=== PATIENT | female | born 1990 | race Caucasian/White ===

== ENCOUNTER 2020-10-30 16:15 | Emergency (ER) | payer OTHER, SELFPAY ==
[2020-10-30 16:23] VITALS: BP 141/93; PULSE 61; RESP 18; TEMP 36.8; O2SAT 100; BMI 23.1
--- NOTE | 2020-10-30 17:25 | ED.ALCOHOL ---
HPI - Alcohol General Chief Complaint: ETOH/Substance Use Stated Complaint: withdraw Time Seen by Provider: 10/30/20 17:39 Source: patient Mode of arrival: ambulatory Limitations: no limitations History of Present Illness HPI narrative: 30-year-old female seeking detox from heroin. States to have withdrawal symptoms time. Amount of alcohol consumed: Last heroin use 7:00 a.m. Associated symptoms: denies other symptoms Related Data Allergies Allergy/AdvReac Type Severity Reaction Status Date / Time No Known Allergies Allergy Unverified 02/19/20 19:48 [No Known Allergies*] Review of Systems Review of Systems: Constitutional: No Fever, No Chills ENT/Mouth: No sore throat, No Rhinorrhea Eyes: No Eye Pain, No Swelling, No Redness Cardiovascular: No Chest Pain, No SOB Respiratory: No Cough, No Sputum Gastrointestinal: No Nausea, No Vomiting, No Diarrhea, No abdominal Pain Genitourinary: No Dysuria, No Hematuria Musculoskeletal: No joint pain, No Myalgias, No Joint Swelling Skin: No Skin Lesions, No rash Neuro: No Weakness, No Numbness, No Loss of Consciousness, No Dizziness, No Headache Psych: Positive heroin withdrawal, No Anxiety, No Depression, No SI/HI/AH/VH Heme/Lymph: No Bruising, No Bleeding,No Lymphadenopathy Endocrine: No Polyuria, No Polydipsia Yes all other systems are reviewed and are negative [facility] Past Medical History Attestation statement: The following information was validated with the patient. Source: old records reviewed Social History Social History Advance Directives: No Advance Directives Information Provided: No Physical Exam Vital Signs: Vital Signs: Last Vital Signs Temp 98.2 F 10/30/20 16:23 Pulse 61 10/30/20 16:23 Resp 18 10/30/20 16:23 BP 141/93 H 10/30/20 16:23 Pulse Ox 100 10/30/20 16:23 Body Mass Index 23.1 Appearance: Alert. Oriented X3. Moderate emotional distress. Eyes: Pupils equal, round and reactive to light. EOMI, sclera nonicteric ENT: Pharynx normal. Moist mucous membranes Neck: Normal inspection. Neck supple. CVS: Normal heart rate and rhythm. Pulses normal. Respiratory: No respiratory distress. Breath sounds normal. Abdomen: Soft and nontender. Skin: Skin warm and dry. Normal skin color. Normal skin turgor. Extremities: No lower extremity edema. Neuro: No motor deficit. No sensory deficit. Course Course Course Narrative: 30-year-old female presents with request for assistance with heroin withdrawal. Would like to be on Suboxone. Discussion with assistant womens volleyball coach Richard, plan is to start with the Suboxone present to the emergency department tomorrow for her 2nd dose. Approximately 45 minutes after 1st 4 mg dosage, 2nd 4 mg dosage ordered. Family is with patient, patient agrees to plan of care. MDM - Alcohol MDM Narrative Medical decision making narrative: Heroin withdrawal Medical Records Attestation: I reviewed the patient's medical records. Discharge Plan Discharge Clinical Impression: Encounter for monitoring Suboxone maintenance therapy Patient Disposition: Home, Self-Care Instructions: Buprenorphine/Naloxone (Into the mouth) Additional Instructions: Please return tomorrow for dosing. Follow-up with assistant womens volleyball coach at planned. Thank you for choosing this emergency department for evaluation. Please follow-up with primary care physician as needed. Return to the emergency department for any new, concerning, or worsening symptoms.
[2020-10-30 17:39] VITALS: PULSE 66
--- NOTE | 2020-10-30 17:42 | MHC.RECOVSUP ---
Recovery Support note: Patient is a 30 year old Ecuadorean speaking female who presented to [facility] ED due to withdrawal symptoms. Patient reports she tried getting into detox earlier today but was unsuccessful. Discussed Suboxone with patient and she is interested in starting while in the emergency department. Patient was accompanied by a friend who explained that patient is depressed, anxious and unable to maintain sobriety. Discussed outpatient treatment options including MAT, IOP and PHP. Plan for patient to get started on Suboxone and return Sunday and Sunday for dosing and to follow up at the clinic on Sunday. Patient provided with IOP information and information on the PHP program at [facility]. This medical writer will offer patient a referral to a Strain Technician. Discussed case with patient's RN and ED provider.
[2020-10-30] MEDS: Buprenorphine/Naloxone 4/1 mg FILM 1 FILM SUBLINGUAL ×2 (17:57→18:58)
== END 2020-10-30 18:50 | disposition home or self-care (01) ==
PROVIDERS: Emergency Provider Internal Medicine
DX: F11.23 Opioid dependence with withdrawal (principal); Z71.51 Drug abuse counseling and surveillance of drug abuser
CPT/HCPCS: 99283

== ENCOUNTER 2020-10-31 11:03 | Emergency (ER) | payer OTHER, SELFPAY ==
[2020-10-31 11:20] VITALS: BP 122/71; PULSE 71; RESP 16; TEMP 36.7; O2SAT 97; BMI 22.4
--- NOTE | 2020-10-31 12:50 | PC.NURSE ---
genesis (care team) at bedside pt/family aware of plan of care.
--- NOTE | 2020-10-31 12:52 | MHC.RECOVSUP ---
Recovery Support note: Patient is a 30 year old Belizean speaking female who presented to [facility] ED today for medication. Patient was started on Suboxone yesterday and returned today for her dose as planned. Patient reports she is doing well and reports no questions regarding the resources discussed yesterday. Discussed case with patient's ED provider. Patient will be sent out with a prescription for tomorrow and will return to go to the clinic on Sunday.
[2020-10-31] MEDS: Buprenorphine/Naloxone 8/2 mg FILM 1 FILM SUBLINGUAL (13:06)
--- NOTE | 2020-10-31 13:28 | ED.GENADULT ---
HPI - General Adult General Chief complaint: General Medical Stated complaint: MEDICATION Time Seen by Provider: 10/31/20 12:31 Source: patient Mode of arrival: ambulatory History of Present Illness HPI narrative: 30-year-old female with a past medical history of heroin abuse presenting to the ED for 2nd Suboxone dose. Patient was seen and treated in the ED yesterday after seeking detox from heroin and received 1st dose of Suboxone and was instructed to return for today's dose. Denies withdrawal symptoms at this time. Denies nausea, vomiting, headache, tremors Onset (ago): day(s) Related Data Previous Rx's Medication Instructions Recorded buprenorphine-naloxone [Suboxone] 1 film BUCCAL DAILY 1 Days #1 ea 10/31/20 Allergies Allergy/AdvReac Type Severity Reaction Status Date / Time No Known Allergies Allergy Verified 10/31/20 11:24 [No Known Allergies*] Review of Systems Review of Systems: Constitutional: No Weight loss, No Fever Eyes: No Eye Pain, No Swelling, No Vision Changes Cardiovascular: No Chest Pain, No SOB, No Palpitations Respiratory: No Cough, No Dyspnea Gastrointestinal: No Nausea, No Vomiting, No Abdominal pain Musculoskeletal: No Myalgias Skin: No Skin Lesions, No rash Neuro: No Headache Yes all other systems are reviewed and are negative PMF[facility] Past Medical History Attestation statement: The following information was validated with the patient. Medical History (Updated 10/31/20 @ 13:28 by LEONARDO Hunt) No known health problems Social History Social History Alcohol intake: never Patient Tobacco Use Status: Current someday Tobacco user Substance Use Type: Marijuana Last Used Substance: Hours (ago) Advance Directives: Yes Advance Directives Information Provided: No Advance Directives on File: No Patient : No Physical Exam Vital Signs: Vital Signs: Last Vital Signs Temp 97.7 F 10/31/20 13:38 Pulse 71 10/31/20 13:38 Resp 16 10/31/20 13:38 BP 118/67 10/31/20 13:38 Pulse Ox 99 10/31/20 13:38 Body Mass Index 22.4 Const: General: cooperative, healthy appearing and no acute distress Orientation/consciousness: patient oriented x3 Limitations: no limitations HENMT: Head: Yes normal to inspection and Yes atraumatic Ears: hearing grossly normal bilaterally General nose exam: Normal external nose present Face and sinus: Yes normal facial exam Eyes: General: appearance normal, both eyes and all related structures EOM: EOMs intact bilaterally Neck: Neck: Yes normal visual inspection and Yes no meningeal signs Resp: Effort & Inspection: normal respiratory effort, not labored and no respiratory distress Cardio: Rate: regular rate GI: Inspection: Yes normal to inspection Skin: Rashes: no rashes Wounds: no wounds Neuro: General: patient oriented x3 and no meningeal signs Gait exam (Neuro): Normal gait present Extrem: General: Yes normal to inspection Medical Decision Making MDM Narrative Medical decision making narrative: 30-year-old female with a past medical history of heroin abuse presenting to the ED for 2nd Suboxone dose. On exam vital signs stable, NAD, no apparent distress, no signs of tremors or withdrawal symptoms at this time. Will give patient 2nd dose of Suboxone. Dr. Fuller able to Rx patient 1x dose Suboxone for tomorrow & then patient plans to follow up in Suboxone Clinic on Sunday after iday Discharge Plan Discharge Clinical Impression: Encounter for monitoring Suboxone maintenance therapy Patient Disposition: Home, Self-Care Instructions: Buprenorphine/Naloxone (Into the mouth) Additional Instructions: Your given 8 mg of Suboxone today A prescription for 8 mg of Suboxone was sent to the pharmacy for you tomorrow, take at 1:00 p.m. You need to follow-up in the Suboxone Clinic on Sunday Refrain from any drug or alcohol use Prescriptions: New buprenorphine-naloxone [Suboxone] 8-2 mg film 1 film buccal DAILY 1 Days Qty: 1 RF: 0 Referrals: [facility] [Physician] - 2 days Interventions: ED Discharge Assessment Last Done: 10/31/20 13:46 Discharge Date/Time: 10/31/20 13:47
[2020-10-31 13:38] VITALS: BP 118/67; PULSE 71; RESP 16; TEMP 36.5; O2SAT 99
== END 2020-10-31 13:47 | disposition home or self-care (01) ==
PROVIDERS: Emergency Provider Emergency Medicine Emergency Medical Services
DX: Z51.81 Encounter for therapeutic drug level monitoring (principal); F11.20 Opioid dependence, uncomplicated
CPT/HCPCS: 99284

== ENCOUNTER → 2020-11-02 11:25 | Outpatient (BNVA) | payer OTHER, SELFPAY | PROVIDERS: Visit Provider Internal Medicine | DX: F12.90 Cannabis use, unspecified, uncomplicated (principal); F14.11 Cocaine abuse, in remission; F11.99 Opioid use, unspecified with unspecified opioid-induced disorder; Z72.89 Other problems related to lifestyle | CPT/HCPCS: 99202 ==

== ENCOUNTER → 2020-11-09 09:58 | Outpatient (BNVA) | payer OTHER, SELFPAY | PROVIDERS: Visit Provider Internal Medicine | DX: Z51.81 Encounter for therapeutic drug level monitoring (principal) | CPT/HCPCS: 80305; 99211 ==

== ENCOUNTER → 2020-11-15 10:01 | Outpatient (BNVA) | payer OTHER, SELFPAY | PROVIDERS: PCP Internal Medicine | DX: Z51.81 Encounter for therapeutic drug level monitoring (principal); F11.90 Opioid use, unspecified, uncomplicated | CPT/HCPCS: 80305; 99211 ==

== ENCOUNTER → 2020-11-22 09:30 | Outpatient (BNVA) | payer OTHER, SELFPAY | DX: Z51.81 Encounter for therapeutic drug level monitoring (principal); F11.90 Opioid use, unspecified, uncomplicated | CPT/HCPCS: 80305; 99211 ==

== ENCOUNTER 2020-11-25 08:45 | Outpatient (RCR) | payer OTHER, SELFPAY ==
[2020-11-05 11:31] VITALS: BMI 23.3
--- NOTE | 2020-11-05 11:48 | PC.ADMIT ---
Patient was seen in [facility] ER on 10/30/20 after relapsing on Heroin for a month. Patient reports she was withdrawing and in crisis. Patient was seen by the [facility] who prescribed Suboxone and referred patient to the PHP for more support. Patient reported increased depression with passive SI and increased anxiety. Identifies contributing factor to relapse is breakup with boyfriend of 1.5 years. Hx of trauma. She currently lives with her mother and brother. Patient is alert and oriented x4. Calm and cooperative. Denied SI at present. Asked who could she contact if feeling unsafe and she stated her sister or mother. Patient has the crisis number if needed. Patient gave verbal permission to email her a copy of her safety plan. Medications reconciled with patient and patient's pharmacy. Reports taking medications as prescribed. Recommended patient attend online substance use groups in addition to PHP for more support with early sobriety. Patient agrees not to smoke marijuana while attending the PHP program.
--- NOTE | 2020-11-05 12:57 | P.HPPSP_ITS ---
HPI Chief Complaint: Depression, Anxiety, Substance abuse D/O HPI Medical Evaluation Reviewed: Yes [facility] Medical History Engages in vaping H/O cocaine abuse Marijuana user No known health problems Opioid use disorder Narrative: Patient is a 30 year-old single female, with no children, referred by [facility] for symptoms of depression and anxiety. She has no history of psychiatric treatment. 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 She describes feeling not myself over the past few months, describing increased anxiety, with low energy, anhedonia, increased sleep, and appetite. She describes episodes of 4 to 5 days at a time since adolescence where she w ould sleep less, overspend, going shopping an to casino, and put herself in risky situations. She describes not losing full self-control, but 'doing things I would not normally do . She does acknowledge increased alcohol and substance use during these times as well. She then states that afterwards, she would experience a mood swing in the opposite direction , with periods of feeling down, with a sense of sadness that would become depression. She describes her mother and sister as being supportive during these times, and both are currently in her life. She lives with her mother and brother, with her older sister and nephew living downstairs. She is one of 4 siblings. She reports there is no family of mental illness, and familial history of cancer, on mother's side. Patient reports that she was abstinent from any opioid use for approximately 5 to 6 years, although she would use marijuana and cocaine occasionally. She recently relapsed with opioids, and has begun suboxone therapy several days ago. She states that she realizes that she needs help with both CAROL and mental health, and that what she has been doing on her own is not working anymore . She is willing to consider medications to help manage Narrative: No history reported. Family History: Maternal familial history of cancer. No substance use or mental illness reported. Social History: Graduated high school. 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 Lives with mother and brother, with sister and nephew in apartment downstairs. Substance History: Marijuana occasional use. Alcohol occasional use. 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 Trauma History: Denies any major traumatic events, states the normal life issues, , etc . Diagnostics Vital Signs (24Hr): Body Mass Index 23.3 Labs Labs: Labs to be completed, including SQUIRES and TSH serum. Meds/Allergies Meds Narrative: Patient recently began suboxone therapy, 16mg SL daily. Takes Sronyx at bedtime. Allergies Allergies Allergy/AdvReac Type Severity Reaction Status Date / Time No Known Allergies Allergy Verified 10/31/20 11:24 [No Known Allergies*] Mental Status Exam Mental Status Exam Patient Appearance: Well Grooomed Patient Orientation: Person, Place, Time and Situation Level of Consciousness: Appropriate and Alert Patient Behavior: Appropriate and Cooperative Mood Description: Appropriate and Anxious Affect Description: Appropriate and Anxious Patient Cognition Impaired: No Ability to Follow Directions: Excellent Speech Pattern: Clear Memory Description: Intact Hallucinations: None Delusions: Not Present Thought Process: Intact Thought Content: positive for Intact Depressive Symptoms: Increased Anxiety, Changes in Appetite, Sleeping More Than Usual and Loss of Int. in Activity Judgement: Good Judgement and Insight: Judgement and insight grossly intact. Patient displays help-seeking behaviors, including participation in groups and medication consideration. Assessment & Plan Patient educated on: diagnosis, medication risk/benefits and substance abuse Informed Consent: understands Reason for continued partial hosp. stay Substantial Risk for: inability to function Certification PLAN: Start Latuda 20mg daily. Will follow up with patient in one week. I certify that partial hospital treatment is medically necessary due to the symptoms and problems resulting from the patient's mental illness and the failure to treat the patient at the partial hospital level of care would likely result in the patient requiring inpatient psychiatric care which could not be prevented at a less intensive level of care. Telehealth Telehealth Location of provider rendering services: practice address Location of patient: address on file Patient Identification confirmed using: Name, : Yes Telehealth method: video Patient verbally consented to treatment: Yes Patient verbally consented to billing insurance company: Yes Patient informed of any privacy concerns related to visit: Yes Time spent with patient (mins): 45
--- NOTE | 2020-11-08 14:50 | PC.NURSE ---
Case opened in treatment team
--- NOTE | 2020-11-08 15:21 | PC.NURSE ---
I called [facility] to inquire about patients appointment because a referral had been made. They said that the clinician called her last sunday and there was no answer. They will look into it and let the clinician who is assigned know.
--- NOTE | 2020-11-11 16:51 | HO.PHPPROGNO ---
Subjective Subjective Date of Service: 11/11/20 Reason For Visit: Depression, Anxiety, Substance abuse D/O Medical Problems Affecting Mental Status: No Interim History: Met with Kinga this afternoon. She was unable to pick-up Jake due to difficulties with insurance company and a prior auth. Patient describes still feeling depressed, and wishing to be started on another medication. We reviewed her possible diagnosis of bipolar disorder. She reports her last episode of hypomanic symptoms was approximately 1 1/2 months ago, whereas she went on a spending spree, sleeping only 3 to 4 hours at night but feeling rested, and engaging in other risky behaviors, including gambling at a casino. She says her pattern is to go through a phase like this for 4 to 5 days, and then come down hard , and feel extremely depressed for a period of time, much longer than the feeling of hypomania. We discussed medication options going forward. Based on the information provided above, it was decided that a trial of Wellbutrin may not be best option. We discussed medications Lamictal and Seroquel. Patient has agreed to try a low dose of seroquel to start, and reassess next week. At that time, we could consider increase of seroquel, or change to lamictal, depending on efficacy and side effects of seroquel. She was in agreement with this plan. Education was provided regarding the medications and potential side effects. She dis report that she is finding the program and groups helpful. Medication Compliance: Yes (Not applicable, as patient was unable to get the medication. ) Attending Groups: Yes Review of Systems Review of Systems Yes all other systems are reviewed and are negative Mental Status Exam Mental Status Exam Patient Appearance: Well Grooomed and Appropriate Patient Orientation: Person, Place, Time and Situation Patient Behavior: Appropriate Mood Description: Calm and Depressed Affect Description: Appropriate and Depressed Patient Cognition Impaired: No Ability to Follow Directions: Excellent Speech Pattern: Clear Memory Description: Intact Hallucinations: None Delusions: Not Present Thought Process: Intact Thought Content: positive for Intact Depressive Symptoms: Increased Anxiety and Difficulty Sleeping Judgement: Good Diagnostics Vital Signs (24Hr): Body Mass Index 23.3 Assessment & Plan Assessment & Plan (1) Bipolar 2 disorder: Status: Acute Code(s): F31.81 - Bipolar II disorder Assessment and Plan: Trial of seroquel, low dose of 50mg at bedtime, for mood regulation. Patient educated on: diagnosis, medication risk/benefits and therapeutic strategies Reason for contiued partial hosp. stay Substantial Risk for: inability to function and med/psych decompensation Certification I certify that partial hospital treatment is medically necessary due to the symptoms and problems resulting from the patient's mental illness and the failure to treat the patient at the partial hospital level of care would likely result in the patient requiring inpatient psychiatric care which could not be prevented at a less intensive level of care. Greater than 50% of the session was spent on counseling and/or coordination of care Discharge Plan Discharge Attending provider: Emmanuel Austin Medications: New quetiapine [Seroquel] 50 mg tablet 50 mg PO BEDTIME Qty: 7 RF: 0 No Action levonorgestrel-ethinyl estrad [Sronyx] 0.1-20 mg-mcg Tablet 1 tab PO BEDTIME RF: 0 buprenorphine-naloxone [Suboxone] 8-2 mg film 2 film sublingual DAILY 7 Days Qty: 14 RF: 0 Telehealth Telehealth Location of provider rendering services: practice address Location of patient: address on file Patient Identification confirmed using: Name, : Yes Telehealth method: video Patient verbally consented to treatment: Yes Patient verbally consented to billing insurance company: Yes Patient informed of any privacy concerns related to visit: Yes Time spent with patient (mins): 15
--- NOTE | 2020-11-15 13:30 | PC.NURSE ---
I spoke with Kinga this morning and she states that she had not yet received a call from [facility] for therapy. I called [facility] and Tanisha said she will pass along a message to Janneth
--- NOTE | 2020-11-18 17:40 | HO.PHPPROGNO ---
Subjective Subjective Date of Service: 11/18/20 Reason For Visit: Depression, Anxiety, Substance abuse D/O Medical Problems Affecting Mental Status: No Interim History: Patient reports that seroquel is helping with sleep. denies any side effects. Feels it is not really helping improve mood. Still feels depressed. No SI. Would like to make a medication change. Wants to start Wellbutrin. Discussed options. Medication Compliance: Yes Side effects from medications: No Attending Groups: Yes Review of Systems Review of Systems Yes all other systems are reviewed and are negative Mental Status Exam Mental Status Exam Patient Appearance: Well Grooomed and Appropriate Patient Orientation: Person, Place, Time and Situation Level of Consciousness: Awake and Appropriate Patient Behavior: Appropriate and Cooperative Mood Description: Appropriate and Depressed Affect Description: Depressed Patient Cognition Impaired: No Ability to Follow Directions: Excellent Speech Pattern: Clear Memory Description: Intact Hallucinations: None Delusions: Not Present Thought Process: Intact Thought Content: positive for Intact Depressive Symptoms: Increased Anxiety and Loss of Int. in Activity Judgement: Good Diagnostics Vital Signs (24Hr): Body Mass Index 23.3 Assessment & Plan Assessment & Plan (1) Bipolar 2 disorder: Status: Acute Code(s): F31.81 - Bipolar II disorder Assessment and Plan: Still feels depressed. No SI. Would like to make a medication change. Wants to start Wellbutrin. Discussed options. PLAN: Increase seroquel to 75mg at bedtime. Add Wellbutrin SR 100mg daily. Follow-up in one week, sooner if needed. Certification I certify that partial hospital treatment is medically necessary due to the symptoms and problems resulting from the patient's mental illness and the failure to treat the patient at the partial hospital level of care would likely result in the patient requiring inpatient psychiatric care which could not be prevented at a less intensive level of care. Greater than 50% of the session was spent on counseling and/or coordination of care Discharge Plan Discharge Attending provider: Emmanuel Austin Medications: New quetiapine [Seroquel] 25 mg tablet 75 mg PO BEDTIME 7 Days Qty: 21 RF: 0 bupropion HCl [Wellbutrin SR] 100 mg tablet sustained-release 12 hr 100 mg PO DAILY Qty: 7 RF: 0 No Action buprenorphine-naloxone [Suboxone] 8-2 mg film 2 film sublingual DAILY 7 Days Qty: 14 RF: 0 levonorgestrel-ethinyl estrad [Sronyx] 0.1-20 mg-mcg Tablet 1 tab PO BEDTIME RF: 0 Telehealth Telehealth Location of provider rendering services: practice address Location of patient: address on file Patient Identification confirmed using: Name, : Yes Telehealth method: video Patient verbally consented to treatment: Yes Patient verbally consented to billing insurance company: Yes Patient informed of any privacy concerns related to visit: Yes Time spent with patient (mins): 15
--- NOTE | 2020-11-23 16:06 | HO.PHPPROGNO ---
Documented by User: Chantel Trudy 11/23/20 16:19 Subjective Subjective Date of Service: 11/23/20 Reason For Visit: Depression, Anxiety, Substance abuse D/O Subjective Notes: Christensen Warning Guardianship: No Medical Problems Affecting Mental Status: No Interim History: Kinga reports that tomorrow is her last day in program. She states that she feels the program has been very helpful to her, and that the combination of Seroquel along with Wellbutrin has been helping. She does understand that it has only been a few days since she has begun the Wellbutrin, and that it may take weeks before she begins to more fully feel that antidepressive effects. She denies any type of thoughts of harm to self or others, no safety concerns. She does continue with some depressive symptoms, including anxiety, sadness. She states however that the Seroquel at night is helping her to sleep, and this is helping her to feel better in the mornings and then throughout the day. She would like to continue with both of these medications. We did discuss increasing dose of Wellbutrin, as 100 mg is a very small initial dose. She was in agreement with this. She does not report any type of activation/hypomanic symptoms since she has started this medication. She currently is waiting for a new prescriber at [facility], and has asked for 1 month's worth of these medications. She is also in early sobriety, and reports that she is doing well with the Suboxone dosing. She takes the Suboxone twice daily, once in the morning and then at 14:00. We discussed that Wellbutrin dosing as being b.i.d., and that she should take the 2nd dose of Wellbutrin in mid afternoon at approximately the same time as she takes the Suboxone, so as to help her remember. We also discussed 12 step meetings and recovery going forward, as it can affect mental health outcomes as well. Patient was shown meeting find your [employer] for smart phone, which lists local 12 step meetings near her immediate vicinity, in real time. We also discussed other types of support programs available in the area. She feels confident going forward, and feels that she has made real progress both in her early sobriety and in this program, along with initiation of medications. Medication Compliance: Yes Side effects from medications: No Attending Groups: Yes Review of Systems Review of Systems Review of systems completed, negative. Yes all other systems are reviewed and are negative Mental Status Exam Mental Status Exam Patient Appearance: Well Grooomed and Appropriate Patient Orientation: Person, Place, Time and Situation Level of Consciousness: Awake, Appropriate and Alert Patient Behavior: Appropriate and Cooperative Mood Description: Calm, Appropriate, Anxious and Sad (Some sadness reported, although feels that this is beginning to lift. ) Affect Description: Calm and Appropriate Patient Cognition Impaired: No Ability to Follow Directions: Excellent Speech Pattern: Clear and Appropriate Memory Description: Intact Hallucinations: None Delusions: Not Present Thought Process: Intact Thought Content: positive for Intact Depressive Symptoms: Increased Anxiety Judgement: Good Diagnostics Vital Signs (24Hr): Body Mass Index 23.3 Assessment & Plan Assessment & Plan (1) Bipolar 2 disorder: Status: Acute Code(s): F31.81 - Bipolar II disorder Assessment and Plan: Patient reports overall positive affect since starting Seroquel at night and Wellbutrin SR 100 in morning. Discussed dose increase of Wellbutrin, she was in agreement. Side effects discussed. If patient finds that she is becoming too sedated or gaining weight with increased appetite from Seroquel 75 mg, she was instructed to lower dose to 50 mg. Script for Wellbutrin SR 100 mg b.i.d. sent to pharmacy. Refill script Seroquel 75 mg HS sent to pharmacy. Patient educated on: diagnosis, medication risk/benefits and therapeutic strategies Informed Consent: understands Reason for contiued partial hosp. stay Substantial Risk for: stable for discharge (Patient expected to be discharged after tomorrow. ) Certification I certify that partial hospital treatment is medically necessary due to the symptoms and problems resulting from the patient's mental illness and the failure to treat the patient at the partial hospital level of care would likely result in the patient requiring inpatient psychiatric care which could not be prevented at a less intensive level of care. Greater than 50% of the session was spent on counseling and/or coordination of care Discharge Plan Discharge Attending provider: Emmanuel Austin Medications: New bupropion HCl [Wellbutrin SR] 100 mg tablet sustained-release 12 hr 100 mg PO BID 30 Days Qty: 60 RF: 0 quetiapine [Seroquel] 25 mg tablet 75 mg PO BEDTIME 30 Days Qty: 90 RF: 0 No Action buprenorphine-naloxone [Suboxone] 8-2 mg film 2 film sublingual DAILY 15 Days Qty: 30 RF: 0 levonorgestrel-ethinyl estrad [Sronyx] 0.1-20 mg-mcg Tablet 1 tab PO BEDTIME RF: 0 Telehealth Telehealth Location of provider rendering services: practice address Location of patient: address on file Patient Identification confirmed using: Name, : Yes Telehealth method: video Patient verbally consented to treatment: Yes Patient verbally consented to billing insurance company: Yes Patient informed of any privacy concerns related to visit: Yes Time spent with patient (mins): 15 Documented by User: Emmanuel Austin 11/24/20 08:45 Subjective Subjective Date of Service: 11/24/20 Reason For Visit: Depression, Anxiety, Substance abuse D/O Discharge Plan Discharge Attending provider: Emmanuel Austin Medications: New bupropion HCl [Wellbutrin SR] 100 mg tablet sustained-release 12 hr 100 mg PO BID 30 Days Qty: 60 RF: 0 quetiapine [Seroquel] 25 mg tablet 75 mg PO BEDTIME 30 Days Qty: 90 RF: 0 No Action buprenorphine-naloxone [Suboxone] 8-2 mg film 2 film sublingual DAILY 15 Days Qty: 30 RF: 0 levonorgestrel-ethinyl estrad [Sronyx] 0.1-20 mg-mcg Tablet 1 tab PO BEDTIME RF: 0
--- NOTE | 2020-11-25 15:01 | HO.PHPPROGNO ---
Subjective Subjective Date of Service: 11/25/20 Reason For Visit: Depression, Anxiety, Substance abuse D/O Medical Problems Affecting Mental Status: No Interim History: Kinga feels ready to leave [facility]. She believes that the medications are helping to manage her mood disorder symptoms. She says that she has gained some insight and coping skills from participating in the group therapy sessions. She plans to continue taking both the Wellbutrin and seroquel, and will follow-up with an outpatient prescriber going forward. She would like to contact [facility] regarding substance use disorder, as she would like to also focus on sobriety going forward. No safety concerns, bridge scripts for medications have been sent to pharmacy. Medication Compliance: Yes Side effects from medications: No Attending Groups: Yes Review of Systems Review of Systems Yes all other systems are reviewed and are negative Mental Status Exam Mental Status Exam Narrative: Well nourished, well groomed female, in no apparent distress. Patient Appearance: Well Grooomed and Appropriate Patient Orientation: Person, Place, Time and Situation Level of Consciousness: Awake, Appropriate and Alert Patient Behavior: Appropriate and Cooperative Mood Description: Appropriate and Cheerful Affect Description: Appropriate and Relaxed (stable affect, no mood lability or constriction noted. ) Patient Cognition Impaired: No Ability to Follow Directions: Excellent Speech Pattern: Clear Memory Description: Intact Thought Process: Intact, Goal Oriented and Linear Thought Content: positive for Intact, positive for Goal Oriented and positive for Linear Judgement: Good Diagnostics Vital Signs (24Hr): Body Mass Index 23.3 Assessment & Plan Assessment & Plan (1) Bipolar 2 disorder: Status: Acute Code(s): F31.81 - Bipolar II disorder Assessment and Plan: Mood and affect stable. Patient reports positive affect with current doses of Wellbutrin and Seroquel. Bridge scripts have been sent to pharmacy pending her 1st outpatient prescriber appointment. She denies any concerns at this time, and expresses hope for the future. No safety concerns noted. Patient educated on: diagnosis, medication risk/benefits and therapeutic strategies Informed Consent: understands Reason for contiued partial hosp. stay Substantial Risk for: stable for discharge Certification I certify that partial hospital treatment is medically necessary due to the symptoms and problems resulting from the patient's mental illness and the failure to treat the patient at the partial hospital level of care would likely result in the patient requiring inpatient psychiatric care which could not be prevented at a less intensive level of care. Greater than 50% of the session was spent on counseling and/or coordination of care Discharge Plan Discharge Attending provider: Emmanuel Austin Additional Instructions: The client completed an intake at [facility] and has an appointment with her new therapist 11/29 and a prescriber by 12/17. Medications: New bupropion HCl [Wellbutrin SR] 100 mg tablet sustained-release 12 hr 100 mg PO BID 30 Days Qty: 60 RF: 0 quetiapine [Seroquel] 25 mg tablet 75 mg PO BEDTIME 30 Days Qty: 90 RF: 0 No Action buprenorphine-naloxone [Suboxone] 8-2 mg film 2 film sublingual DAILY 15 Days Qty: 30 RF: 0 levonorgestrel-ethinyl estrad [Sronyx] 0.1-20 mg-mcg Tablet 1 tab PO BEDTIME RF: 0 Stand Alone Forms: Patient Portal Discharge page Telehealth Telehealth Location of provider rendering services: practice address Location of patient: address on file Patient Identification confirmed using: Name, : Yes Telehealth method: video Patient verbally consented to treatment: Yes Patient verbally consented to billing insurance company: Yes Patient informed of any privacy concerns related to visit: Yes Time spent with patient (mins): 15
--- NOTE | 2020-11-26 12:06 | PC.NURSE ---
Patient discharged on 11/24/20. Reviewed patients discharge medications with patient. Patient reports taking medications as prescribed. Medication education provided. Denied any safety issues. Found the program helpful.
== END 2020-11-26 07:30 | disposition home or self-care (01) ==
LOC: HO.PHPA 08:45
PROVIDERS: Visit Provider Psychiatry & Neurology Psychiatry
DX: F31.81 Bipolar II disorder (principal)
CPT/HCPCS: 90791; 90792; 90853

== ENCOUNTER → 2020-12-07 09:10 | Outpatient (BNVA) | payer OTHER, SELFPAY | PROVIDERS: Visit Provider Internal Medicine | DX: Z51.81 Encounter for therapeutic drug level monitoring (principal) | CPT/HCPCS: 80305; 99211 ==

== ENCOUNTER → 2020-12-20 10:59 | Outpatient (BNVA) | payer OTHER, SELFPAY | DX: Z51.81 Encounter for therapeutic drug level monitoring (principal) | CPT/HCPCS: 80305; 99211 ==

== ENCOUNTER → 2021-01-03 11:22 | Outpatient (BNVA) | payer OTHER, SELFPAY | PROVIDERS: Absent Provider Internal Medicine; Visit Provider Internal Medicine | DX: F11.99 Opioid use, unspecified with unspecified opioid-induced disorder (principal) | CPT/HCPCS: 80305; 99211 ==

== ENCOUNTER → 2021-01-24 11:02 | Outpatient (BNVA) | payer OTHER, SELFPAY | PROVIDERS: Visit Provider Internal Medicine | DX: Z51.81 Encounter for therapeutic drug level monitoring (principal); F11.90 Opioid use, unspecified, uncomplicated | CPT/HCPCS: 80305; 99212 ==

== ENCOUNTER → 2021-02-21 16:53 | Outpatient (BNVA) | payer OTHER, SELFPAY | PROVIDERS: Visit Provider Internal Medicine | DX: F11.99 Opioid use, unspecified with unspecified opioid-induced disorder (principal); F14.10 Cocaine abuse, uncomplicated; F12.10 Cannabis abuse, uncomplicated; U07.0 Vaping-related disorder; Z51.81 Encounter for therapeutic drug level monitoring | CPT/HCPCS: 80305; 99212 ==

== ENCOUNTER → 2021-04-15 15:13 | Outpatient (BNVA) | payer OTHER, SELFPAY | PROVIDERS: Visit Provider Internal Medicine | DX: Z51.81 Encounter for therapeutic drug level monitoring (principal); F11.90 Opioid use, unspecified, uncomplicated | CPT/HCPCS: 80305; 99212 ==

== ENCOUNTER → 2021-05-20 15:49 | Outpatient (BNVA) | payer OTHER, SELFPAY | PROVIDERS: Visit Provider Internal Medicine | DX: Z51.81 Encounter for therapeutic drug level monitoring (principal); F11.20 Opioid dependence, uncomplicated | CPT/HCPCS: 80305; 99212 ==

== ENCOUNTER 2021-06-08 08:17 | Emergency (ER) | payer OTHER, SELFPAY ==
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
[2021-06-08 08:27] VITALS: BP 113/66; PULSE 88; RESP 12; TEMP 36.7; O2SAT 100; BMI 24.1
[2021-06-08] MEDS: Lidocaine HCl 2 % MPF 5 ML VIAL SUBCUT (11:45)
[2021-06-08] MEDS: Ketorolac Tromethamine 30 MG/ML VIAL IM (11:45)
[2021-06-08] MEDS: Diphth,Pertus(ACell),Tet Adult 0.5 ML SYRINGE IM (11:46)
== END 2021-06-08 11:50 | disposition home or self-care (01) ==
PROVIDERS: Emergency Provider Emergency Medicine
DX: S13.4XXA Sprain of ligaments of cervical spine, initial encounter (principal); S06.0X9A Concussion with loss of consciousness of unspecified duration, initial encounter; S01.511A Laceration without foreign body of lip, initial encounter; V89.2XXA Person injured in unspecified motor-vehicle accident, traffic, initial encounter; Y93.9 Activity, unspecified; Y92.410 Unspecified street and highway as the place of occurrence of the external cause; Y99.9 Unspecified external cause status
CPT/HCPCS: 12013; 70450; 70486; 72125; 90471; 90715; 96372; 99284; J1885

== ENCOUNTER → 2021-07-15 15:44 | Outpatient (BNVA) | payer OTHER, SELFPAY | PROVIDERS: Visit Provider Internal Medicine | DX: Z51.81 Encounter for therapeutic drug level monitoring (principal); F11.20 Opioid dependence, uncomplicated | CPT/HCPCS: 80305 ==

== ENCOUNTER → 2021-09-12 13:40 | Outpatient (BNVA) | payer OTHER, SELFPAY | PROVIDERS: Visit Provider Internal Medicine | DX: F11.20 Opioid dependence, uncomplicated (principal); Z51.81 Encounter for therapeutic drug level monitoring; Z79.899 Other long term (current) drug therapy | CPT/HCPCS: 80305; 99212 ==

== ENCOUNTER → 2021-10-11 14:07 | Outpatient (BNVA) | payer OTHER, SELFPAY | PROVIDERS: Visit Provider Internal Medicine | DX: Z51.81 Encounter for therapeutic drug level monitoring (principal); F11.20 Opioid dependence, uncomplicated | CPT/HCPCS: 80305; 96372; 99212 ==

== ENCOUNTER → 2021-11-08 10:14 | Outpatient (BNVA) | payer OTHER, SELFPAY | PROVIDERS: Visit Provider Internal Medicine | DX: Z51.81 Encounter for therapeutic drug level monitoring (principal); F11.20 Opioid dependence, uncomplicated | CPT/HCPCS: 80305; 81025; 96372; 99212 ==

== ENCOUNTER → 2021-12-13 10:31 | Outpatient (BNVA) | payer OTHER, SELFPAY | PROVIDERS: Visit Provider Internal Medicine | DX: F11.20 Opioid dependence, uncomplicated (principal) | CPT/HCPCS: 80305; 96372; 99212; Q9991 ==

== ENCOUNTER → 2022-01-10 10:14 | Outpatient (BNVA) | payer OTHER, SELFPAY | PROVIDERS: Visit Provider Internal Medicine | DX: F11.99 Opioid use, unspecified with unspecified opioid-induced disorder (principal); Z51.81 Encounter for therapeutic drug level monitoring; Z32.02 Encounter for pregnancy test, result negative | CPT/HCPCS: 81025; 96372; 99212 ==